=== PATIENT | male | born 1935 | race Caucasian/White ===

== ENCOUNTER → 2017-05-06 | Day surgery (SDC) | payer MEDICARE ==
[~2017-05-06] MED LIST: FENTANYL CITRATE/PF 100MCG/2 ML INJ ONE; MIDAZOLAM HCL 2 MG/2 ML VIAL ONE; OR PHACO EYE KIT ONE; PREOP PHACO EYE KIT ONE; VASOTEC5 MG PO
--- OUTSIDE RECORDS SUMMARY | 2017-05-06 11:21 | XMS REPORT | Clinical Summary ---
Author Author [facility] Address Unknown Phone Unavailable Care Team Providers Care Arresting Gear Operator Name Role Phone Amy Small MD PCP Allergies Not on File Current Medications Not on file Active Problems Not on file Social History Tobacco Use Types Packs/Day Years Used Date Never Assessed Sex Assigned at Date Recorded Not on file Last Filed Vital Signs Not on file Plan of Treatment Health Maintenance Due Date Last Done Comments ZOSTER VACCINE 1997 PNEUMOCOCCAL 2002 POLYSACCHARIDE VACCINE AGE 65 AND OVER PNEUMOCOCCAL-13 2002 INFLUENZA VACCINE 10/01/2016 Results Not on fileafter 05/05/2016 Insurance Payer Benefit Subscriber ID Type Phone Address Plan / Group MEDICARE MEDICARE xxxxxxxxxx Medicare [place], [place] PART A [place] B MEDICAID MEDICAID xxxxxxxxx Medicaid
== END | disposition home or self-care (01) ==
LOC: OR 11:18
PROVIDERS: ATTEND Ophthalmology
DX: H25.12 Age-related nuclear cataract, left eye (principal); I10 Essential (primary) hypertension; M06.9 Rheumatoid arthritis, unspecified; M19.90 Unspecified osteoarthritis, unspecified site; Z85.819 Personal history of malignant neoplasm of unspecified site of lip, oral cavity, and pharynx
CPT/HCPCS: 66984; J2250

== ENCOUNTER → 2017-06-03 | Day surgery (SDC) | payer MEDICARE ==
--- OUTSIDE RECORDS SUMMARY | 2017-06-03 11:16 | XMS REPORT | Clinical Summary ---
Author Author [facility] Address Unknown Phone Unavailable Care Team Providers Care Linotyper Name Role Phone Amy Small MD PCP [...] 65 AND OVER PNEUMOCOCCAL-13 2002 INFLUENZA VACCINE 10/01/2017 Results Not on fileafter 06/02/2016 Insurance Payer Benefit Subscriber ID Type Phone Address Plan / Group MEDICARE MEDICARE xxxxxxxxxx Medicare [place], [place] PART A AND B MEDICAID MEDICAID xxxxxxxxx Medicaid
== END | disposition home or self-care (01) ==
LOC: OR 11:13
PROVIDERS: ATTEND Ophthalmology
DX: H25.11 Age-related nuclear cataract, right eye (principal); M19.90 Unspecified osteoarthritis, unspecified site; C14.0 Malignant neoplasm of pharynx, unspecified; I10 Essential (primary) hypertension; Z88.5 Allergy status to narcotic agent; Z88.2 Allergy status to sulfonamides; Z87.891 Personal history of nicotine dependence
CPT/HCPCS: 66984; J2250; V2632